=== PATIENT | female | born 1945 | race Caucasian/White ===

== ENCOUNTER → 2019-01-16 | Outpatient (CLI) | payer OTHER ==
[~2019-01-16] VITALS: Ht 157.5 cm; Wt 57.6 kg
[~2019-01-16] MED LIST: ASMANEX110 MCG INH; COUMADIN 4 MG TA4 M1 PO; COZAAR 25 MG TA25 M1 PO; PROBIOTIC1 EAC1 PO; PROTONIX40 M1 PO; SINGULAIR 10 MG10 M1 PO; SYNTHROID100 MC1 PO; VENTOLIN HFA 1818 GM INH; XOLAIR150 MG/1 M SUBQ; ZANAFLEX4 M2 PO; ZANTAC 150MG T150 MG PO
--- NOTE | ~2019-01-16 | P ---
[facility] [address] PROCEDURE REPORT Name: LEEANNE CHAVEZ Room #: REG [facility].#: [id number] Admission: 01/16/19 ������������������ Attend Phys: Kobe Villafana Discharge: ������������������ Date of : 45 Report #: [id number] THIS REPORT FOR: //name// CC: Kobe Bell DATE OF SERVICE: 01/16/2019 PROCEDURE PERFORMED: Colonoscopy with biopsies. HISTORY OF PRESENT ILLNESS: The patient is a 73-year-old female who was seen in the office by myself on 12/18/2018 with low, constant abdominal pain beginning several weeks prior to the visit. Last colonoscopy was 5 years ago with diverticulosis. We therefore discussed starting antibiotics and she had improvement of approximately 40-50% at that time. We repeated the antibiotics, still had some symptoms, proceeded with a CT scan of the abdomen and pelvis on 12/31/2018. This showed sigmoid diverticulosis without evidence of diverticulitis, large amount of retained stool was noted throughout the colon. The patient does complain of constipation and does take MiraLax on a daily basis. Her family history is unknown as she is adopted. Plan is for colonoscopy today. The patient does report significant improvement, but still has mild pain at times. DESCRIPTION OF PROCEDURE: The risks and benefits of the procedure were explained to the patient, those risks including, but not limited to, bleeding, perforation and the risk of sedation. She understood these risks and gave informed consent. Sedation was given using propofol per anesthesia. Next, a digital rectal exam was initially performed, which was normal other than small external hemorrhoids. Next, using a standard Olympus colonoscope, the scope was placed in the patient's anus and advanced under direct vision to the cecum. The overall prep was excellent. The cecum and ileocecal valve were normal in appearance. The ascending and transverse colon were normal. In the descending colon, a 3 mm sessile polyp was noted. This was removed with cold forceps, otherwise normal. Multiple diverticula were noted in the sigmoid colon, no evidence of inflammation. There was a mild narrowing in one area, but again, no obvious significant stricture was noted and no inflammation. Also noted was a 4 mm sessile polyp. This was removed with cold forceps. The rectal mucosa was normal. On retroflexion, small nonbleeding internal hemorrhoids were noted. The scope was then withdrawn and the procedure terminated. The patient tolerated the procedure well. IMPRESSION: 1. Sigmoid diverticulosis. No evidence of inflammation. 2. Two small colonic polyps. 3. Small internal and external hemorrhoids. [address] [address] PROCEDURE REPORT Name: KATHYLEEANNE Room #: REG MARICEL Quiles#: [id number] Admission: 01/16/19 ������������������ Attend Phys: Kobe Villafana Discharge: ������������������ Date of : 45 Report #: [id number] 4. Otherwise, normal colonoscopy. RECOMMENDATIONS: 1. Await biopsy results. 2. If polyps are hyperplastic, repeat in 10 years; if adenomatous polyps, repeat in 5 years. 3. Would continue MiraLax for constipation history. Thank you for allowing me to participate in her care. ��������������������������������������������� ���������������������������������������� By: ��������������������������������������������� 1003 29 Kobe Villar MD /nt
[2019-01-16 08:48] LABS: INR 1.1; PROTIME 11.1 Seconds (9.3-11.4)
--- NOTE | 2019-01-17 16:05 | PATH ---
[facility] [address] [address] PATHOLOGY RPT PROCEDURE Name: LEEANNE CHAVEZ Room #: REG [facility] M.R.#: [id number] ������������������ Admission: 01/16/19 ������������������ Date of : 45 Discharge: Report #: [id number] Path Case #: [id number] [facility] Accession Number: [id number] . 01 Material submitted: . PART A: colon - BX POLYP AT DESCENDING COLON. Modifiers: descending PART B: colon - BX POLYP AT SIGMOID COLON . 01 Clinical history: . History polyps, change in bowel habits Colon polyps, diverticulosis, hemorrhoids . 02 Diagnosis: A. Polyp, at descending colon, endoscopic biopsy: - Minute tubular adenoma. - Negative for high-grade dysplasia. . B. Polyp, at sigmoid colon, endoscopic biopsy: - Tubular adenoma. - Negative for high-grade dysplasia. - One fragment showing hyperplastic polyp without any dysplasia. . (IUV:rodriguez; 01/17/2019) MBR/01/17/2019 . 02 Electronically signed: . Dania Lala MD, Pathologist NPI- [id number] . 01 Gross description: . A. The specimen is received in formalin, labeled "Bela, R C, BX polyp at descending colon" and consists of a fragment of walker-maurice tissue measuring 0.6 x 0.2 x 0.1 cm which is entirely submitted in A1. . B. The specimen is received in formalin, labeled "Nanninga, R C, BX polyp at sigmoid colon" and consists of 2 fragments of pink-maurice tissue measuring 0.2 x 0.2 cm and 0.3 x 0.2 x 0.1 cm which are entirely submitted in B1. (SDY; 01/16/2019) SYU/SYU . 02 Pathologist provided ICD-10: D12.4, D12.5 . 02 CPT . 097156, 813903 Specimen Comment: A courtesy copy of this report has been sent to Specimen Comment: [phone], . [place] [address] PATHOLOGY RPT PROCEDURE Name: KATHYLEEANNETeresita HESS Room #: REG CLDotty Quiles#: [id number] ������������������ Admission: 01/16/19 ������������������ Date of : 45 Discharge: Report #: [id number] Path Case #: [id number] Specimen Comment: Report sent to / DR SILVERIO Performed at: [address], [place], [place] [id number] MD Eduin Toledo MD Phone: [phone] Performed at: [address] [id number] MD Dania Lala MD Phone: [phone]
== END | disposition home or self-care (01) ==
LOC: GI 07:35
PROVIDERS: Specialist
DX: D12.4 Benign neoplasm of descending colon (principal); D12.5 Benign neoplasm of sigmoid colon; K63.5 Polyp of colon; K57.30 Diverticulosis of large intestine without perforation or abscess without bleeding; K64.8 Other hemorrhoids; K64.4 Residual hemorrhoidal skin tags; Z86.010 Personal history of colon polyps; Z91.040 Latex allergy status; Z88.2 Allergy status to sulfonamides; Z88.8 Allergy status to other drugs, medicaments and biological substances; Z79.899 Other long term (current) drug therapy; Z79.01 Long term (current) use of anticoagulants
CPT/HCPCS: 62110; 62900

== ENCOUNTER → 2019-05-22 | Outpatient (CLI) | payer OTHER ==
[~2019-05-22] VITALS: Ht 157.5 cm; Wt 56.7 kg
[~2019-05-22] MED LIST changes: +LOSARTAN POTASS50 MG PO
[2019-05-22 07:49] LABS: PROTIME 10.1 Seconds (9.3-11.4)
--- NOTE | 2019-05-23 18:06 | PATH ---
[facility] [address] [place] [address] PATHOLOGY RPT PROCEDURE Name: LEEANNE NOLAND Room #: REG MARICEL Nilton.#: [id number] Admission: 05/22/19 Date of : 45 Discharge: Report #: [id number] Path Case #: [id number] [facility] Accession Number: [id number] . 01 Material submitted: . PART A: duodenum - BIOPSY DUODENUM R/O SPRUE PART B: stomach - BIOPSY GASTRITIS R/O H. PYLORI PART C: esophagus - BIOPSY DISTAL ESOPHAGUS R/O CONRAD'S. Modifiers: distal . 01 Clinical history: . Abdomen pain, gastritis, possible Conrad's A. Rule out sprue B. Rule out H. pylori C. Rule out Conrad's . 02 Diagnosis: A. Small bowel mucosa, duodenum, endoscopic biopsy: - No diagnostic abnormalities. - Negative for villous blunting or increase in intraepithelial lymphocytes. . B. Gastric mucosa, gastritis, rule out H. pylori, endoscopic biopsy: - Mild reactive gastropathy. - Negative for intestinal metaplasia or atrophy. - Negative for Helicobacter pylori (properly controlled immunohistochemical stain performed). . C. Gastric cardia-type mucosa, distal esophagus rule out Conrad's, endoscopic biopsy: - Mild chronic inflammation. - Negative for intestinal metaplasia or dysplasia. . (IUV:mechanical applications engineer; 05/23/2019) MBR 05/23/2019 1410 Local . 02 Electronically signed: . Dania Lala MD, Pathologist NPI- [id number] . 01 Gross description: . A. The specimen is received in formalin, labeled "Leeanne Noland, biopsy duodenum, rule out sprue", are four irregular fragments of maurice soft tissue measuring 0.5 x 0.5 x 0.1 cm in aggregate. Entirely submitted in A1. . B. The specimen is received in formalin, labeled "Leeanne Noland, biopsy gastritis, rule out H. pylori", are few irregular fragments of maurice soft [address] [address] PATHOLOGY RPT PROCEDURE Name: LEEANNE NOLAND [id number]: 05/22/19 Date of : 45 Discharge: Report #: [id number] Path Case #: [id number] tissue measuring 0.6 x 0.6 x 0.2 cm in aggregate. Entirely submitted in B1. . C. The specimen is received in formalin, labeled "Bela, Leeanne, biopsy distal esophagus, rule out Conrad's", are three irregular fragments of maurice soft tissue measuring 0.5 x 0.4 x 0.1 cm in aggregate. Entirely submitted in C1. ([facility]; 05/22/2019) [facility] 05/22/20192001 Local . 02 Pathologist provided ICD-10: K31.9, K29.50 . 02 CPT . 374392, 914567, 294503, M10593 Specimen Comment: A courtesy copy of this report has been sent to Specimen Comment: [phone], , . Specimen Comment: Report sent to ,DR SILVERIO / DR NOGUEIRA Performed at: [address], [place] [id number] MD Eduin Toledo MD Phone: [phone] Performed at: [address] [id number] MD Dania Lala MD Phone: [phone]
--- NOTE | 2019-05-24 09:23 | P ---
[facility] [place] [address] PROCEDURE REPORT Name: LEEANNE CHAVEZ [id number] Admission: 05/22/19 Attend Phys: Kobe Villafana Discharge: Date of : 45 Report #: [id number] THIS REPORT FOR: //name// CC: Kobe Arellano MD DATE OF SERVICE: 05/22/2019 PROCEDURE PERFORMED: Upper endoscopy with biopsies. HISTORY OF PRESENT ILLNESS: The patient is a 73-year-old female with a history of gastroesophageal reflux disease, who was last seen in the office on 04/30/2019. Previously, was taking Protonix on a daily basis, which was controlling her symptoms in general, but due to renal concerns, she is switched to taking Protonix 2-3 times per day and Zantac b.i.d. now. She continues to have intermittent heartburn symptoms. She does have a history of constipation, currently taking MiraLax. She is having bowel movements on a regular basis, but still complains of incomplete evacuation at times. She had a colonoscopy in December of this year showing diverticulosis and two small adenomatous polyps removed, otherwise negative. She denies any dysphagia at this time. Plan is for EGD. DESCRIPTION OF PROCEDURE: The risks and benefits of the procedure were explained to the patient, those risks including but not limited to bleeding, perforation and the risk of sedation. She understood these risks and gave informed consent. Sedation was given using propofol per Anesthesia. Next, using a standard Olympus upper endoscope, the scope was placed in the patient's mouth and advanced under direct vision to the esophagus, stomach and into the second portion of the duodenum. The larynx was normal in appearance. The upper and mid esophagus was normal. In the distal esophagus at the GE junction, no reflux esophagitis was noted; however, a possible short 5 mm segment of Odom's was noted. Biopsies were obtained. Overall, the gastric fundus was normal. A mild gastritis was noted in the body and the antrum. No evidence of ulcerations or erosions. Biopsies were obtained to rule out H. pylori. The pylorus was normal and patent. The duodenal bulb, first and second portion were all normal. Biopsies were obtained to rule out celiac sprue. The scope was then withdrawn and the procedure terminated. The patient tolerated the procedure well. IMPRESSION: 1. Possible short segment Odom's. 2. Mild gastritis. 3. Otherwise, normal upper endoscopy. [address] [address] PROCEDURE REPORT Name: LEEANNE CHAVEZ Room #: REG [facility]#: [id number] Admission: 05/22/19 Attend Phys: Kobe Villafana Discharge: Date of : 45 Report #: [id number] RECOMMENDATIONS: 1. Await biopsy results. 2. 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 Thank you for allowing me to participate in her care. <ELECTRONICALLY SIGNED> By: Kobe Villar MD 05/24/19 0923 0915 1334 Kobe Villar MD /nt
== END | disposition home or self-care (01) ==
LOC: GI 07:02
PROVIDERS: Specialist
DX: K21.9 Gastro-esophageal reflux disease without esophagitis (principal); K29.50 Unspecified chronic gastritis without bleeding; K31.9 Disease of stomach and duodenum, unspecified; I12.9 Hypertensive chronic kidney disease with stage 1 through stage 4 chronic kidney disease, or unspecified chronic kidney disease; N18.3 Chronic kidney disease, stage 3 (moderate); I48.91 Unspecified atrial fibrillation; J45.909 Unspecified asthma, uncomplicated; M79.7 Fibromyalgia; Z98.890 Other specified postprocedural states; Z98.41 Cataract extraction status, right eye; Z98.42 Cataract extraction status, left eye; Z79.899 Other long term (current) drug therapy; Z90.49 Acquired absence of other specified parts of digestive tract; Z91.040 Latex allergy status; Z96.643 Presence of artificial hip joint, bilateral; Z88.2 Allergy status to sulfonamides; Z88.8 Allergy status to other drugs, medicaments and biological substances; Z79.01 Long term (current) use of anticoagulants
CPT/HCPCS: 62110; 62900